=== PATIENT | female | born 1965 | race Caucasian/White ===

== ENCOUNTER 2017-03-23 15:34 | Emergency (ER) | payer OTHER, MEDICARE, MEDICAID ==
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
== END 2017-03-23 17:04 | disposition disaster alternative care site (69) ==
LOC: GACC 15:34
DX: M54.5 Low back pain (principal); M54.2 Cervicalgia; F17.210 Nicotine dependence, cigarettes, uncomplicated; I10 Essential (primary) hypertension; Z88.0 Allergy status to penicillin; Z79.1 Long term (current) use of non-steroidal anti-inflammatories (NSAID); Z79.891 Long term (current) use of opiate analgesic; Z79.899 Other long term (current) drug therapy; Z98.84 Bariatric surgery status; Z98.890 Other specified postprocedural states; V49.50XA Passenger injured in collision with unspecified motor vehicles in traffic accident, initial encounter; Z86.61 Personal history of infections of the central nervous system

== ENCOUNTER → 2017-03-23 | Outpatient (CLI) | payer OTHER, MEDICARE, MEDICAID | END | disposition disaster alternative care site (69) | LOC: GAMB 15:11 | DX: S19.9XXA Unspecified injury of neck, initial encounter (principal); M54.2 Cervicalgia; R51 Headache; V59.9XXA Occupant (driver) (passenger) of pick-up truck or van injured in unspecified traffic accident, initial encounter | CPT/HCPCS: A0425; A0429 ==